=== PATIENT | female | born 1955 | race Two or more races ===

== ENCOUNTER 2025-09-03 16:18 | Emergency (ER) | payer OTHER, SELFPAY ==
[2025-09-03 16:24] VITALS: BP 166/89; PULSE 75; RESP 18; TEMP 36.7; O2SAT 96; BMI 34.3
[2025-09-03 16:31] VITALS: PULSE 79; RESP 20; O2SAT 99
--- NOTE | 2025-09-03 16:49 | XR_ITS ---
Examination: CT abdomen and pelvis without contrast. Coronal 3-D reconstructions. Sagittal 2-D reconstructions. Date and time of exam: September 03, 2025, 1659 hours, comparison May 17, 2020 INDICATIONS: Lower abdominal pain and pressure beginning today, history kidney stones CTDI: vol (mGy): 11.2 DLP: (mGycm): 616 Technique: Axial images of the abdomen have been obtained, 3 mm slice thickness Intravenous contrast material has not been administered. Low dose protocols were performed. One or more of the following dose reduction techniques were used; automated exposure control, adjustment of the mA and/or KV according to patient size, use of iterative reconstruction technique. Findings: No visualized liver or splenic lesion Absent gallbladder No pancreatic or adrenal mass Numerous bilateral staghorn type calculi including the left renal pelvis No hydronephrosis or ureteral calculi Aortic calcification no aneurysmal dilatation Normal appendix No bowel obstruction No diverticulitis Atrophic uterus 7 mm distal right ureteral vesicle junction calculus Bladder intact Severe osteopenia IMPRESSION: Numerous bilateral staghorn type renal calculi Mild right hydronephrosis, 7 mm distal right uretero vesical junction calculus
--- NOTE | 2025-09-03 16:49 | PD.EDRME ---
Rapid Medical Screening Exam RME Arrival date/time: 09/03/25 16:18 70-year-old female with a history of hypertension presents to the emergency room with a chief complaint of right-sided flank pain, and vaginal pain, and lower abdominal pain x 2 days I have greeted and performed a focused initial assessment of this patient. A comprehensive ED assessment and evaluation of the patient, analysis of all test results, and completion of the medical decision making process will be conducted by additional ED providers. Chief Complaint: Abdominal Pain Time Seen by Provider: 09/03/25 16:47 Vital signs: Vital Signs Temperature 98.0 F 09/03/25 16:24 Pulse Rate 75 09/03/25 16:24 Respiratory Rate 18 09/03/25 16:24 Blood Pressure 166/89 H 09/03/25 16:24 Pulse Oximetry (%) 96 09/03/25 16:24 Oxygen Delivery Method Room Air 09/03/25 16:24 Vital signs reviewed by provider: Yes
[2025-09-03] MEDS: ONDANSETRON ODT 4 MG TABRAP PO (17:01)
[2025-09-03] MEDS: KETOROLAC INJ 60 MG/2 ML VIAL 30 MG IM (17:01)
[2025-09-03 17:18] LABS: Basophils # (Auto) 0.1 Thou/mm3 (0.0-0.2); Basophils % (Auto) 1 % (0-2.5); Eosinophils # (Auto) 0.7 Thou/mm3 (0.0-0.5); Eosinophils % (Auto) 12 % (0-10); Hematocrit 41.4 % (36.0-46.0); Hemoglobin 12.9 g/dL (12.0-16.0); Immature Granulocytes Auto 0.02 Thou/mm3 (0.00-0.00); Lymphocytes # (Auto) 1.2 Thou/mm3 (1.0-4.8); Lymphocytes % (Auto) 21 % (10-50); Mean Corpuscular HGB Conc 31.2 g/dl (31.0-37.0); Mean Corpuscular Hemoglobin 26.6 pg (25.0-35.0); Mean Corpuscular Volume 85 fL (80-100); Monocytes # (Auto) 0.0 Thou/mm3 (0.0-0.8); Monocytes % (Auto) 1 % (0-12); Neutrophils # (Auto) 3.7 Thou/mm3 (1.8-7.7); Neutrophils % (Auto) 65 % (37-80); Nucleated Red Blood Cell # 0.00 Thou/mm3 (0.00-0.00); Nucleated Red Blood Cell % 0 /100 WBC (0); Platelet Count 238 Thou/mm3 (140-440); RDW Standard Deviation 46.2 fL (36.4-46.3); Red Blood Count 4.85 Miln/mm3 (4.00-5.20); White Blood Count 5.6 Thou/mm3 (3.6-11.0)
[2025-09-03 17:27] LABS: Collection Type, Urine Clean Catch
[2025-09-03 17:35] LABS: Bacteria,Urine 3+; Bilirubin,Urine Negative (Negative); Blood,Urine 2+ (Negative); Clarity,Urine Turbid (Clear/Hazy); Color,Urine Yellow (Lt Yel-Yel); Glucose, Urine Negative (Negative); Ketones,Urine Negative (Negative); Leukocyte Esterase,Urine Positive (Negative); Nitrite,Urine Positive (Negative); PH,Urine 6.5 (5.0-7.0); Protein,Urine 1+ (Neg - Trace); RBC,Urine 94 /hpf (0-3); Specific Gravity,Urine 1.016 (1.001-1.035); Squamous Epithelial Cell,Urine < 1 /hpf (0-5); Urobilinogen,Urine Negative mg/dL (0.0-1.0); WBC,Urine 311 /hpf (0-5)
[2025-09-03 17:35] LABS: Alanine Aminotransferase 12 U/L (10-49); Albumin, Serum 4.7 gm/dL (3.4-4.8); Albumin/Globulin Ratio 1.8 (1.2-2.2); Alkaline Phosphatase 79 U/L (46-116); Anion Gap 8 (7-16); Aspartate Amino Transferase 13 U/L (0-34); BUN/Creatinine Ratio 16 Ratio (12-20); Bilirubin,Total 0.4 mg/dL (0.3-1.2); Blood Urea Nitrogen 13 mg/dL (9-23); Calcium 10.6 mg/dL (8.3-10.6); Calcium (Corrected) 10.6 mg/dL (8.5-10.1); Carbon Dioxide 30.3 mMol/L (20.0-31.0); Chloride 105 mMol/L (98-107); Creatinine (Component) 0.8 mg/dL (0.6-1.3); Estimated Creatinine Clearance 62.1 mL/min (>60); Globulin 2.6 gm/dL (2.3-3.5); Glucose 124 mg/dL (74-106); Lipase 27 U/L (12-53); Osmolality,Calculated 286 (275-295); Potassium 4.5 mMol/L (3.4-5.1); Sodium 143 mMol/L (136-145); Total Protein 7.3 gm/dL (5.7-8.2); eGFR > 60 See Note
--- NOTE | 2025-09-03 18:24 | PD.EDABDPN ---
ED Abdominal Pain RME/HPI General Chief Complaint: Abdominal Pain Stated complaint: ABD PAIN Time seen by provider: 09/03/25 16:47 Arrival date/time: 09/03/25 16:18 RME / HPI RME / HPI narrative: 09/03/25 16:18 70-year-old female with a history of hypertension presents to the emergency room with a chief complaint of right-sided flank pain, and vaginal pain, and lower abdominal pain x 2 days I have greeted and performed a focused initial assessment of this patient. A comprehensive ED assessment and evaluation of the patient, analysis of all test results, and completion of the medical decision making process will be conducted by additional ED providers. DR. HERNANDEZ MAIN ED EVALUATION: Patient presenting with sudden onset of vaginal pressure-like sensation with radiation to the right flank escalating throughout the day, nausea but no emesis. Denies fever although notes chills. Denies dysuria, increased urinary urgency or frequency. No similar previous symptoms. PMH: HTN PSH: Appendectomy Allergies: None Social: Non-smoker, Non-drinker, No illicit drug use Related Data Home Medications ?Medication ?Instructions ?Recorded ?Confirmed lisinopril 40 mg tablet 40 mg PO QDAY 05/17/20 05/17/20 Previous Rx's ?Medication ?Instructions ?Recorded cephalexin 500 mg capsule (Keflex) 500 mg PO TID #15 caps 05/17/20 hydrocodone 5 mg-acetaminophen 325 1 tab PO Q6H PRN pain #10 tabs 05/17/20 mg tablet ([place]) tamsulosin 0.4 mg capsule (Flomax) 0.4 mg PO QDAY #5 caps 05/17/20 ciprofloxacin HCl 500 mg tablet 500 mg PO BID #20 tabs 09/03/25 (Cipro) ketorolac 10 mg tablet 10 mg PO Q8H #14 tabs 09/03/25 ondansetron 4 mg disintegrating 4 mg PO Q8H #10 tabs 09/03/25 tablet Allergies Allergy/AdvReac Type Severity Reaction Status Date / Time No Known Allergies Allergy Verified 03/07/22 08:49 Review of Systems Review of Systems Systems Reviewed: All systems reviewed, normal except as documented Past Medical History Past Medical History CARDIAC: Positive Cardiac Disorders and Hypertension ED Exam Narrative Physical exam: GEN. APPEARANCE: The patient is alert awake oriented X-3 under no distress after receiving analgesics, lying down comfortably, does not look ill/toxic. Patient has good eye contact. Patient is cooperative. VITALS: All vitals were reviewed and the pulse ox is 96%, which is normal according to my interpretation HEENT: Normocephalic, atraumatic and nontender. Pupils are equal and reactive. Oral mucosa is moist. NECK: Supple, nontender, no meningismus, no JVD. There is no thyromegaly and no lymphadenopathy. CHEST: Nontender on palpation no deformity and no crepitus. CARDIOVASCULAR: Heart regular rhythm, no murmur or gallop rub or extra beats. LUNGS: Clear to auscultation bilaterally with symmetrical chest rise. No laboring tachypnea or wheezing. No intercostal subcostal retraction. No rales and no rhonchi. ABDOMEN: Soft, obese, mildy tender to palpation of suprapubic region, slight right CVA tenderness, no guarding or rebound tenderness. There are no abnormal masses palpated. No pulsatile masses or bruits. Active and normal bowel sounds. EXTREMITIES:.Normal inspection and palpation. No edema. No cyanosis. Patient is able to move all 4 extremities well SKIN: Warm and dry, no rashes noted. MUSCULOSKELETAL: No lumbar or midline bony tenderness. There is no CVA tenderness. No paraspinal muscle spasm or tenderness. NEURO: Cranial nerves II through XII grossly intact. There are no focal neurologic deficits noted. GCS is 15 PSYCHIATRIC: Patient is in normal mood and affect, cooperative. LYMPHATICS: No major lymphadenopathy noted. Course Quality Measures none Orders Category Date Time Status CT abdomen pelvis wo con Stat Exams 09/03/25 16:49 Completed CBC Stat Lab 09/03/25 17:08 Completed CMP [Comprehensive Metabolic Panel] Stat Lab 09/03/25 17:08 Completed Lipase Stat Lab 09/03/25 17:08 Completed UA [Urinalysis] Stat Lab 09/03/25 17:21 Completed Urine Culture Stat Lab 09/03/25 17:21 Received Ketorolac Inj [Toradol Inj] Med 09/03/25 16:49 Discontinued 30 mg IM X1 ONE Ondansetron Odt [Zofran Odt] Med 09/03/25 16:49 Discontinued 4 mg PO X1 ONE cefTRIAXone [Rocephin] 1,000 mg Med 09/03/25 20:11 Discontinued Lidocaine 1% 20 ml [Xylocaine 1% 20 ML] 2.1 ml IM X1 Vital Signs Vital signs: Vital Signs Temperature 98.0 F 09/03/25 16:24 Pulse Rate 75 09/03/25 16:24 Respiratory Rate 18 09/03/25 16:24 Blood Pressure 166/89 H 09/03/25 16:24 Pulse Oximetry (%) 96 09/03/25 16:24 Oxygen Delivery Method Room Air 09/03/25 16:24 Abdominal Pain MDM MDM Narrative MDM Narrative:: Scribe Attestation: I, Jihan Mendoza, am scribing for and in the presence of Dr. Hernandez. Provider Notation: Although this document has been carefully reviewed, there may still be some phonetic and other typographical errors. These errors are purely grammatical due to imperfections in the software program and should not be construed in any way to compromise the substance of the patient's medical care during this visit. Patient presenting with sudden onset of vaginal pressure-like sensation with radiation to the right flank escalating throughout the day, nausea but no emesis. Denies fever although notes chills. Please see PE findings. Laboratory markers, including CBC and serum chemistries, were essentially unre ua demosn hematuria pyuria and wbacteuria. Patietn hyd with saline, traeted with IV NSAID, ant iemetic and administered [address]. [address] svcan distal 7mm right ureteral stone. without hydronephrosis. WIll likely require trx for uro Ureteralithiaisis and UTI Patient data External records reviewed:: [facility] previous records (Reviewed prior ED records from 07/24/23. Patient was seen for Contusion of face.) Clinical information provided by:: patient Social determinants that could affect healthcare access:: none Patient has the following chronic illnesses:: HTN How is presenting disease/condition affected by chronic disease/condition?: exacerbated by Evaluation data The following diagnostics were reviewed and interpreted by me:: lab results and radiology exam(s) Lab and/or radiology exams considered but not ordered:: None Interpretation Summary: RADIOLOGY Abdomen/Pelvis CT: Findings: No visualized liver or splenic lesion Absent gallbladder No pancreatic or adrenal mass Numerous bilateral staghorn type calculi including the left renal pelvis No hydronephrosis or ureteral calculi Aortic calcification no aneurysmal dilatation Normal appendix No bowel obstruction No diverticulitis Atrophic uterus 7 mm distal right ureteral vesicle junction calculus Bladder intact Severe osteopenia IMPRESSION: Numerous bilateral staghorn type renal calculi Mild right hydronephrosis, 7 mm distal right uretero vesical junction calculus Medications / Prescriptions Medications or Prescriptions considered but not ordered:: None Medication administrations:: Medication Administration History Discontinued Medications Ceftriaxone Sodium 1,000 mg/ (Lidocaine HCl 2.1 ml) 0 mg IM X1 ONE Stop: 09/03/25 20:12 Ketorolac Tromethamine (Ketorolac Inj 60 Mg/2 Ml Vial) 30 mg IM X1 ONE Stop: 09/03/25 16:50 Last Admin: 09/03/25 17:01 Dose: 30 mg Documented By: TREVON Ondansetron HCl (Ondansetron Odt 4 Mg Tabrap) 4 mg PO X1 ONE; Protocol Stop: 09/03/25 16:50 Last Admin: 09/03/25 17:01 Dose: 4 mg Documented By: TREVON See above if any Diagnosis Differential diagnosis abdominal pain: abdominal pain, calculus of kidney, diverticulitis, gastroenteritis and small bowel obstruction Admission Indicated Admission indicated?: not indicated Admission Request Was there a request for admission?: No Disposition Plan Disposition Plan: Transfer Discharge Plan Plan Patient Disposition: HOME (Self Care) Patient condition on transfer: Stable Prescriptions/Referrals Prescriptions/Med Rec: New ciprofloxacin HCl [Cipro] 500 mg tablet 500 mg PO BID Qty: 20 0RF ketorolac 10 mg tablet 10 mg PO Q8H Qty: 14 0RF Rx Instructions: maximum total duration of 5 days from all oral, intranasal, or parenteral formulations ondansetron 4 mg tablet,disintegrating 4 mg PO Q8H Qty: 10 0RF No Action lisinopril 40 mg Tablet 40 mg PO QDAY cephalexin [Keflex] 500 mg capsule 500 mg PO TID Qty: 15 0RF tamsulosin [Flomax] 0.4 mg capsule 0.4 mg PO QDAY Qty: 5 0RF hydrocodone-acetaminophen [[place]] 5-325 mg tablet 1 tab PO Q6H MDD 6 PRN (Reason: pain) Qty: 10 0RF Referrals: Eleni Javed MD [Physician, Urology] - In 1 week No Primary/Family,Physician [Primary Care Provider] - In 1 week Problem List Clinical Impression: Ureterolithiasis, Complicated UTI (urinary tract infection) Patient/Caregiver Discharge Instructions Education Materials: ED Kidney Stone Undescended No ..., ED CYSTITIS Female Adult Additional Instructions: Take the medications as prescribed if there is a worsening of symptoms in spite of the medications follow-up with the urologist listed above or return to the emergency room for reevaluation. Print Language: Ghanaian Stand Alone Forms: Jessica Award Info., Work/School Release, Patient Portal Info Letter PA/LILA Supervising Physician PA/LILA Supervising Physician: Jl Brown ENP
--- NOTE | 2025-09-03 20:07 | PD.EDADULT ---
ED General RME/HPI General Chief complaint: Abdominal Pain Stated complaint: ABD PAIN Time Seen by Provider: 09/03/25 16:47 Arrival date/time: 09/03/25 16:18 CC: Right-sided flank pain HPI ongoing for the past 2 to 3 days has had this similar episode 2 years ago that spontaneously resolved. Patient had minimal nausea this morning but since has resolved, the pain is decreased to a 1 after given Toradol injection. Patient denies fever chills shortness of breath or difficulty breathing. RME / HPI RME / HPI narrative: 09/03/25 16:18 70-year-old female with a history of hypertension presents to the emergency room with a chief complaint of right-sided flank pain, and vaginal pain, and lower abdominal pain x 2 days I have greeted and performed a focused initial assessment of this patient. A comprehensive ED assessment and evaluation of the patient, analysis of all test results, and completion of the medical decision making process will be conducted by additional ED providers. DR. HERNANDEZ MAIN ED EVALUATION: Patient presenting with sudden onset of vaginal pressure-like sensation with radiation to the right flank escalating throughout the day, nausea but no emesis. Denies fever although notes chills. Denies dysuria, increased urinary urgency or frequency. No similar previous symptoms. PMH: HTN PSH: Appendectomy Allergies: None Social: Non-smoker, Non-drinker, No illicit drug use Related Data Home Medications ?Medication ?Instructions ?Recorded ?Confirmed lisinopril 40 mg tablet 40 mg PO QDAY 05/17/20 05/17/20 Previous Rx's ?Medication ?Instructions ?Recorded cephalexin 500 mg capsule (Keflex) 500 mg PO TID #15 caps 05/17/20 hydrocodone 5 mg-acetaminophen 325 1 tab PO Q6H PRN pain #10 tabs 05/17/20 mg tablet ([place]) tamsulosin 0.4 mg capsule (Flomax) 0.4 mg PO QDAY #5 caps 05/17/20 ciprofloxacin HCl 500 mg tablet 500 mg PO BID #20 tabs 09/03/25 (Cipro) ketorolac 10 mg tablet 10 mg PO Q8H #14 tabs 09/03/25 ondansetron 4 mg disintegrating 4 mg PO Q8H #10 tabs 09/03/25 tablet Allergies Allergy/AdvReac Type Severity Reaction Status Date / Time No Known Allergies Allergy Verified 03/07/22 08:49 Review of Systems Review of Systems Narrative Review of Systems: GEN: No fever, no chills, no weight loss EYES: No discharge, no visual changes, no pain HEENT: No ear pain, no congestion, no sore throat PULM: No shortness of breath, no cough, no congestion CV: No chest pain, no dyspnea on exertion, no palpitations GI: No nausea, no vomiting, no diarrhea, no pain, no constipation : No frequency, no urgency, no dysuria MUSC/SKEL: No joint pain, + flank pain SKIN: No rash PSYCH: No hallucinations, no depression HEME/LYMPH: No easy bleeding or bruising tendencies NEURO: No weakness, no headache Past Medical History Past Medical History CARDIAC: Positive Cardiac Disorders and Hypertension; Negative Congestive Heart Failure RESPIRATORY: Negative Chronic Obstructive Pulmonary Disease (COPD) or Asthma GENITOURINARY: Negative Renal Disease ENDOCRINE: Negative Diabetes Mellitus Type 1 or Diabetes Mellitus Type 2 HEMATOLOGIC: Negative Sickle Cell Disease Social History SMOKING STATUS: Never smoker ED Exam Narrative Physical exam: [General: Obese not in any acute distress Head normocephalic HEENT: Within acceptable limits Neck is supple nontender Chest equal chest rise nontender to palpation Respiratory: Clear to auscultation no wheezes crackles or rubs CV: Rate rhythm is regular no murmurs rubs or clicks Abdomen is distended secondary to body habitus soft nontender no masses positive bowel sounds all 4 quadrants Back: Mild right CVA tenderness with palpation Skin: Intact no petechiae rash induration ulceration or crepitus Extremities: Moving all extremity against resistance cap refill less than 2 seconds neurosensory intact Neuro: Awake alert oriented x3 Glascow coma 15 no focal deficits] Course Quality Measures none Orders Category Date Time Status CT abdomen pelvis wo con Stat Exams 09/03/25 16:49 Completed CBC Stat Lab 09/03/25 17:08 Completed CMP [Comprehensive Metabolic Panel] Stat Lab 09/03/25 17:08 Completed Lipase Stat Lab 09/03/25 17:08 Completed UA [Urinalysis] Stat Lab 09/03/25 17:21 Completed Urine Culture Stat Lab 09/03/25 17:21 Received Ketorolac Inj [Toradol Inj] Med 09/03/25 16:49 Discontinued 30 mg IM X1 ONE Ondansetron Odt [Zofran Odt] Med 09/03/25 16:49 Discontinued 4 mg PO X1 ONE Vital Signs Vital signs: Vital Signs Temperature 98.0 F 09/03/25 16:24 Pulse Rate 75 09/03/25 16:24 Respiratory Rate 18 09/03/25 16:24 Blood Pressure 166/89 H 09/03/25 16:24 Pulse Oximetry (%) 96 09/03/25 16:24 Oxygen Delivery Method Room Air 09/03/25 16:24 Discharge Plan Plan Patient Disposition: HOME (Self Care) Patient condition on transfer: Stable Prescriptions/Referrals Prescriptions/Med Rec: New ciprofloxacin HCl [Cipro] 500 mg tablet 500 mg PO BID Qty: 20 0RF ketorolac 10 mg tablet 10 mg PO Q8H Qty: 14 0RF Rx Instructions: maximum total duration of 5 days from all oral, intranasal, or parenteral formulations ondansetron 4 mg tablet,disintegrating 4 mg PO Q8H Qty: 10 0RF No Action lisinopril 40 mg Tablet 40 mg PO QDAY cephalexin [Keflex] 500 mg capsule 500 mg PO TID Qty: 15 0RF tamsulosin [Flomax] 0.4 mg capsule 0.4 mg PO QDAY Qty: 5 0RF hydrocodone-acetaminophen [[place]] 5-325 mg tablet 1 tab PO Q6H MDD 6 PRN (Reason: pain) Qty: 10 0RF Referrals: No Primary/Family,Physician [Primary Care Provider] - In 1 week Eleni Javed MD [Physician, Urology] - In 1 week Problem List Clinical Impression: Urinary tract infection, Urolithiasis, Hydroureter Patient/Caregiver Discharge Instructions Education Materials: ED Kidney Stone Undescended No ..., ED CYSTITIS Female Adult Additional Instructions: Take the medications as prescribed if there is a worsening of symptoms in spite of the medications follow-up with the urologist listed above or return to the emergency room for reevaluation. Print Language: Puerto Rican Stand Alone Forms: Jessica Award Info., Patient Portal Info Letter, Work/School Release PA/SHELVER Supervising Physician PA/SHELVER Supervising Physician: Jl Brown ENP MDM Clinical Information Provided by: patient Medical Records reviewed [facility] Meds/Rx considered, not ordered None Labs/Rad/Tests considered, not ordered None Chronic Illness/Social Conditions Explain: Obesity hypertension EKG EKG not done Labs Labs: interpreted by me Lab(s) Interpretation(s): CBC shows no acute leukocytosis anemia thrombocytopenia CMP shows no significant electrolyte imbalance other than a glucose of 124 no transaminitis or T. bili elevation. Urine is turbid 1+ protein 2+ blood RBCs at 94 WBCs at 311 leukocyte esterase positive bacteria 3+ nitrite positive as well. Imaging Imaging interpretation: interpreted by [facility] Interpretation(s): 7 mm staghorn stone at right UPJ. Medication Administration(s) none Medication Administration History Discontinued Medications Ketorolac Tromethamine (Ketorolac Inj 60 Mg/2 Ml Vial) 30 mg IM X1 ONE Stop: 09/03/25 16:50 Last Admin: 09/03/25 17:01 Dose: 30 mg Documented By: TREVON Ondansetron HCl (Ondansetron Odt 4 Mg Tabrap) 4 mg PO X1 ONE; Protocol Stop: 09/03/25 16:50 Last Admin: 09/03/25 17:01 Dose: 4 mg Documented By: TREVON Diagnosis Differential Diagnosis ED Complaint MDM: Cholecystitis urolithiasis hydroureter
[2025-09-03 20:35] VITALS: BP 144/85; PULSE 72; RESP 16; TEMP 36.8; O2SAT 96
[2025-09-03] MEDS: cefTRIAXone 1,000 MG, LIDOCAINE 1% 20 ML 2.1 ML IM (20:37)
== END 2025-09-03 21:09 | disposition home or self-care (01) ==
PROVIDERS: Nurse Practitioner Family; Emergency Provider Emergency Medicine
DX: N13.6 Pyonephrosis (principal); N20.9 Urinary calculus, unspecified; I10 Essential (primary) hypertension
CPT/HCPCS: 36415; 74176; 80053; 81001; 83690; 85025; 87077; 87086; 87186; 96372; 99283; J0696; J1885; J3490; Q0162